=== PATIENT | female | born 1985 | race Two or more races ===

== ENCOUNTER 2025-01-17 23:12 | Emergency (ER) | payer OTHER ==
[~2025-01-17] VITALS: Ht 170.2 cm; Wt 82.0 kg
[2025-01-17 23:16] VITALS: TEMP 98
[2025-01-18 00:25] VITALS: BP 142/78; PULSE 82; RESP 17; O2SAT 99
[2025-01-18] MEDS: LORazepam 2 MG/ML VIAL IM ONE (00:37)
[2025-01-18] MEDS ORDERED: LORA0.5T20 PO (01:09)
== END 2025-01-18 01:20 | disposition home or self-care (01) ==
LOC: EMS 23:12
DX: F41.0 Panic disorder [episodic paroxysmal anxiety] (principal); F43.20 Adjustment disorder, unspecified; I10 Essential (primary) hypertension
CPT/HCPCS: 99283; 96372; J2060